=== PATIENT | female | born 1975 | race Caucasian/White ===

== ENCOUNTER 2017-06-21 03:44 | Emergency (ER) | payer MEDICAID ==
[2017-06-21] MEDS ORDERED: LIDOCAINE 1% INJ-PF (10 MG/ML) 30 ML SDV INJ ONE (04:50)
--- NOTE | 2017-06-21 04:56 | ER Document Report ---
HPI - HPI Pain Level: 5 Notes: Patient with a history of recurrent hidradenitis presents the ED complaining of multiple abscesses with the largest one in the right groin 1 day. Patient states that she has 2 in her axilla that are smaller and the potty trained that do not cause her much discomfort, a couple small areas under her breasts bilaterally, the larger abscess in her right groin that is actively draining. Patient states that she usually needs an incision and drainage performed and placed on antibiotics. Patient states that she has been seen by multiple different providers and pack changer without any definitive treatment. Patient denies any history of MRSA. She is still eating and drinking without any difficulties. Tylenol has not helped for her pain. She denies any smoking or drug use. Denies any headache, fever, chest pain, palpitations, syncope, cough , shortness of breath, wheeze, dyspnea, abdominal pain, nausea/vomiting/diarrhea , dysuria, hematuria. - ROS Notes: REVIEW OF SYSTEMS: CONSTITUTIONAL : Denies fever, chills, or sweats. Denies recent illness. EENT: Denies eye, ear, throat, or mouth pain or symptoms. Denies nasal or sinus congestion or discharge. Denies throat, tongue, or mouth swelling or difficulty swallowing. CARDIOVASCULAR: Denies chest pain. Denies palpitations or racing or irregular heart beat. Denies ankle edema. RESPIRATORY: Denies cough, cold, or chest congestion. Denies shortness of breath, difficulty breathing, or wheezing. GASTROINTESTINAL: Denies abdominal pain or distention. Denies nausea, vomiting , or diarrhea. Denies blood in vomitus, stools, or per rectum. Denies black, tarry stools. Denies constipation. GENITOURINARY: Denies difficulty urinating, painful urination, burning, frequency, blood in urine, or discharge. MUSCULOSKELETAL: Denies back or neck pain or stiffness. Denies joint pain or swelling. SKIN: see hpi NEUROLOGICAL: Denies confusion or altered mental status. Denies passing out or loss of consciousness. Denies dizziness or lightheadedness. Denies headache. Denies weakness or paralysis or loss of use of either side. Denies problems with gait or speech. Denies sensory loss, numbness, or tingling. ALL OTHER SYSTEMS REVIEWED AND NEGATIVE. Dictation was performed using [employer] recognition software - DERM Skin Color: Normal Past Medical History - Social History Smoking Status: Never Smoker Family History: Reviewed & Not Pertinent Patient has suicidal ideation: No Patient has homicidal ideation: No Renal/ Medical History: Denies: Hx Peritoneal Dialysis Vertical Provider Document - CONSTITUTIONAL Agree With Documented VS: Yes Notes: PHYSICAL EXAMINATION: GENERAL: Well-appearing, well-nourished and in no acute distress. NECK: Normal range of motion, supple without lymphadenopathy. Breasts: + hydradenitis x3 (0.5cm) to the inferior breasts b/l with mild erythema. No abscess, induration, or discharge. + mild tenderness. LUNGS: Breath sounds clear to auscultation bilaterally and equal. No wheezes rales or rhonchi. HEART: Regular rate and rhythm without murmurs, rubs, gallops. Musculoskeletal: FROM to passive/active. Strength 5+/5. Extremities: No cyanosis, clubbing, or edema b/l. Peripheral pulses 2+. Capillary refill less than 3 seconds. NEUROLOGICAL: Cranial nerves grossly intact. Normal speech, normal gait. Normal sensory, motor exams PSYCH: Normal mood, normal affect. SKIN: Lt axilla: 1cm erythemic areas-hydradenitis. Minimal induration. No discharge or streaks. Rt groin: 2cm erythemic abscess with induration noted and purulent discharge. + tenderness. Hydradenitis noted. No streaking or inguinal lymphadenopathy. - INFECTION CONTROL TRAVEL OUTSIDE OF THE [place] IN LAST 30 DAYS: No - RESPIRATORY O2 Sat by Pulse Oximetry: 97 Course - Re-evaluation Re-evalutation: 06/21/17 05:40 Patient is an afebrile, well-hydrated, 41-year-old female who presents the ED with an acute exacerbation of hidradenitis and abscess to her right groin. Vitals are stable. PE otherwise unremarkable. Incision and drainage was performed successfully without complications to the right groin and packing was placed. Wound dressing placed. Wound instructions reviewed. Wound culture obtained. I will send her home with Keflex and Bactrim to take as directed. Conservative measures otherwise for symptoms. Recheck/establish with PCM this week. Consider consult with dermatology. Return to the ED with any worsening/ concerning symptoms otherwise as reviewed discharge. Patient is in agreement. - Vital Signs Vital signs: Temp Pulse Resp BP Pulse Ox 97.6 F 90 18 129/76 H 97 06/21/17 03:51 06/21/17 03:51 06/21/17 03:51 06/21/17 03:51 06/21/17 03:51 Procedures - Incision and Drainage Right Groin Time completed: 05:10 Type: Simple Anesthetic type: 1% Lidocaine mL's of anesthetic: 6 Blade size: 11 I&D procedure: Shurclens applied, Iodoform packing placed, Sterile dressing applied Incision Method: Incision made by scalpel Amount/type of drainage: 3cc purulent discharge, 3cc blood Notes: 06/21/17 05:20 Incision and drainage procedure, risks, benefits reviewed with the patient. Verbal and written consent obtained. Sterile technique utilized. The area was extensively cleansed utilizing shurclens and saline. A 21-gauge needle was utilized to anesthetize the area using 6 mL's of 1% lidocaine without epinephrine. Once adequate anesthesia was provided, a #11 scalpel was utilized to make a 2 cm incision at the site of the abscess. moderate amount of purulent material was expressed. Wound culture obtained. Hemostats were then utilized to break up any remaining muscular pockets within the abscess. The wound was then lightly packed using 1/4" iodoform. Wound dressing and triple antibiotic placed. Minimal blood loss (approximately 2-3 cc's). Patient tolerated procedure well. No complications. Discharge - Discharge Clinical Impression: Abscess, Hydradenitis Condition: Stable Disposition: HOME, SELF-CARE Instructions: Post Incision and Drainage, Abscess ([facility]), Trimethoprim-Sulfa ( [facility]), Cephalexin ([facility]) Additional Instructions: Do not shower or bathe for 24 hours. After 24 hours she may shower but no submersion of the wound under water. Keep the original dressing on the wound for 24 hours unless the drainage stops through. Change the dressing daily thereafter and use a small amount of triple antibiotic ointment over the open wound. Return to the ED and/or your PCM in 2-3 days for recheck and continue direction for wound packing. Monitor for any signs of worsening pain or redness , streaks, and/or fever. Return to the ED if noticing any of the above symptoms or as needed. Take medications as directed. Return to the ED with any worsening symptoms and/or development of fever, headache, chest pain, palpitations, syncope, shortness of breath, trouble breathing, abdominal pain, n/v/d, blood in stool/urine, loss of control of bowel /bladder, or other worsening symptoms that are concerning to you. Prescriptions: Cephalexin Monohydrate [Keflex 500 mg Capsule] 500 mg PO BID #20 capsule Sulfamethoxazole/Trimethoprim [Septra-Ds 800-160 mg Tablet] 1 tab PO BID #20 tablet Forms: Elevated Blood Pressure Referrals: DERMATOLOGY [Provider Group] - Follow up as needed [facility] [Provider Group] - Follow up as needed [facility] [Provider Group] - Follow up as needed [facility] [Provider Group] - Follow up as needed
[2017-06-21 06:26] VITALS: BP 121/81
[2017-06-21] MEDS ORDERED: HYDROCODONE/ACETAMINOPHEN 5-325 MG 6 TAB/DSPK PO SCH (10:00)
== END 2017-06-21 06:25 | disposition home or self-care (01) ==
LOC: ER 03:44
PROC: 0H97XZZ Drainage of Abdomen Skin, External Approach (ICD-10-PCS; principal; 2017-06-21)
DX: L02.214 Cutaneous abscess of groin (principal); L73.2 Hidradenitis suppurativa
CPT/HCPCS: 99283; 87070; 87205; 87075; 87077; 87186; 10060; A6266; J3490

== ENCOUNTER 2017-08-25 23:23 | Emergency (ER) | payer MEDICAID, MEDICARE ==
[2017-08-26 00:01] VITALS: BP 119/78
[2017-08-26] MEDS ORDERED: HYDROMORPHONE HCL INJ/PF 2 MG/ML AMPULE ONE (00:42)
[2017-08-26] MEDS ORDERED: HYDROMORPHONE HCL INJ/PF 2 MG/ML AMPULE IM ONE (00:48)
[2017-08-26] MEDS ORDERED: SULFAMETHOXAZOLE/TRIMETHOPRIM 800-160 MG TABLET PO ONE (00:50)
--- NOTE | 2017-08-26 00:51 | ER Document Report ---
ED General - General Chief Complaint: Abscess Stated Complaint: BACK PAIN,ABSCESS Time Seen by Provider: 08/26/17 00:14 Notes: Patient is a 41-year-old female with a history of recurrent abscesses who presents with concerns of an abscess in her right lower abdomen in the suprapubic region. Patient states that this area developed over the past 3-4 days and has become a dull, constant, severe pain that is worsened by touching area. She has not tried anything for relief of the pain. She states this feels very similar to when she has had MRSA abscesses in the past. She has not seen a primary care doctor regarding today's concerns. She denies any fever or constitutional symptoms. Patient also complains of a "lump" below her right lower rib that she notices when she bends or moves. She notes that this is not the main reason for her presentation but did wish to discuss while she was here. TRAVEL OUTSIDE OF THE [place] IN LAST 30 DAYS: No - Related Data Allergies/Adverse Reactions: No Known Allergies Allergy (Verified 06/21/17 05:40) Past Medical History - General Information source: Patient - Social History Smoking Status: Never Smoker Frequency of alcohol use: None Drug Abuse: None Lives with: Family Family History: Reviewed & Not Pertinent Patient has suicidal ideation: No Patient has homicidal ideation: No Renal/ Medical History: Denies: Hx Peritoneal Dialysis Past Surgical History: Reports: Hx Tonsillectomy - Immunizations Hx Diphtheria, Pertussis, Tetanus Vaccination: - unknown Review of Systems - Review of Systems Notes: Constitutional: Negative for fever. HENT: Negative for sore throat. Eyes: Negative for visual changes. Cardiovascular: Negative for chest pain. Respiratory: Negative for shortness of breath. Gastrointestinal: Negative for abdominal pain, vomiting or diarrhea. Genitourinary: Negative for dysuria. Musculoskeletal: Negative for back pain. Skin: Positive for an abscess of the right lower abdomen Neurological: Negative for headaches, weakness or numbness. 10 point ROS negative except as marked above and in HPI. Physical Exam - Vital signs Vitals: Temp Pulse Resp BP Pulse Ox 98.4 F 89 16 119/78 96 08/25/17 23:59 08/25/17 23:59 08/25/17 23:59 08/25/17 23:59 08/25/17 23:59 Interpretation: Normal Notes: PHYSICAL EXAMINATION: GENERAL: Well-appearing, well-nourished and in no acute distress. HEAD: Atraumatic, normocephalic. EYES: Pupils equal round and reactive to light, extraocular movements intact, sclera anicteric, conjunctiva are normal. ENT: nares patent, oropharynx clear without exudates. Moist mucous membranes. NECK: Normal range of motion, supple without lymphadenopathy LUNGS: Breath sounds clear to auscultation bilaterally and equal. No wheezes rales or rhonchi. HEART: Regular rate and rhythm without murmurs ABDOMEN: Soft, nontender, normoactive bowel sounds. No guarding, no rebound. No masses appreciated. EXTREMITIES: Normal range of motion, no pitting or edema. No cyanosis. NEUROLOGICAL: No focal neurological deficits. Moves all extremities spontaneously and on command. PSYCH: Normal mood, normal affect. SKIN: Warm, Dry, normal turgor, there is a 2 x 2 centimeter abscess in the right lower abdomen and suprapubic region Course - Re-evaluation Re-evalutation: 08/26/17 00:49 Patient presents with 2 distinct complaints 1. Patient is complaining of a small lump underneath her lower right ribs that she has noted for the past several months. On palpation this appears to be a lipoma and I have encouraged her to follow-up with her primary care physician for any additional concerns. No indication for imaging or labs regarding this complaint 2. Right groin abscess: Patient does have a 2 x 2 centimeter abscess on the right side of the suprapubic region. No starting cellulitis. This will be incised and drained and patient will be started on trimethoprim sulfamethoxazole. At this time will discharge with return precautions and follow-up recommendations. Verbal discharge instructions given a the bedside and opportunity for questions given. Medication warnings reviewed. Patient is in agreement with this plan and has verbalized understanding of return precautions and the need for primary care follow-up in the next 24-72 hours. - Vital Signs Vital signs: Temp Pulse Resp BP Pulse Ox 98.4 F 89 16 119/78 96 08/25/17 23:59 08/25/17 23:59 08/25/17 23:59 08/25/17 23:59 08/25/17 23:59 Procedures - Incision and Drainage Left Abdomen Type: Simple Anesthetic type: 1% Lidocaine Blade size: 11 I&D procedure: Betadine prep applied Incision Method: Incision made by scalpel Amount/type of drainage: 5 cc of purulent drainage Discharge - Discharge Clinical Impression: Abscess Condition: Good Disposition: HOME, SELF-CARE Additional Instructions: You were seen for an abscess that required drainage. Please clean this area with soap and water twice daily and apply a topical antibiotic. Dress the area after each cleaning. Please return if you develop fever, vomiting, the pain at the site worsens, you notice spreading redness from the area, or you have any other symptoms that are concerning to you. Prescriptions: Sulfamethoxazole/Trimethoprim [Bactrim Ds Tablet] 2 tab PO BID #20 tablet Referrals: BOY PARRISH MD [ACTIVE STAFF] - Follow up as needed
== END 2017-08-26 02:29 | disposition home or self-care (01) ==
LOC: ER 23:23
PROC: 0H97XZZ Drainage of Abdomen Skin, External Approach (ICD-10-PCS; principal; 2017-08-25)
DX: L02.211 Cutaneous abscess of abdominal wall (principal); R22.2 Localized swelling, mass and lump, trunk; R10.30 Lower abdominal pain, unspecified
CPT/HCPCS: 99283; 96372; 10060; J1170

== ENCOUNTER 2017-11-06 17:04 | Emergency (ER) | payer MEDICARE ==
[2017-11-06 18:10] VITALS: BP 124/85
[2017-11-06] MEDS ORDERED: SULFAMETHOXAZOLE/TRIMETHOPRIM 800-160 MG TABLET PO ONE (19:20)
[2017-11-06] MEDS ORDERED: HYDROCODONE/ACETAMINOPHEN 5-325 MG TABLET PO ONE (19:20)
--- NOTE | 2017-11-06 19:21 | ER Document Report ---
ED Skin Rash/Insect Bite/Abscs - General Chief Complaint: Abscess Stated Complaint: POSSIBLE ABSCESS Time Seen by Provider: 11/06/17 18:55 Mode of Arrival: Ambulatory Information source: Patient Notes: Patient is a 41-year-old female who presents to the ER today for 2 days of an abscess to her lower abdomen. Patient has had abscesses before incised and drained but states that they were always on her legs or groin, never on her abdomen. She denies any fevers or chills at home, drainage from the area. She denies history of MRSA. TRAVEL OUTSIDE OF THE [place] IN LAST 30 DAYS: No - Related Data Allergies/Adverse Reactions: No Known Allergies Allergy (Verified 06/21/17 05:40) Past Medical History - General Information source: Patient - Social History Smoking Status: Never Smoker Family History: Reviewed & Not Pertinent Renal/ Medical History: Denies: Hx Peritoneal Dialysis Past Surgical History: Reports: Hx Tonsillectomy - Immunizations Hx Diphtheria, Pertussis, Tetanus Vaccination: - unknown Review of Systems - Review of Systems Constitutional: No symptoms reported EENT: No symptoms reported Cardiovascular: No symptoms reported Respiratory: No symptoms reported Gastrointestinal: No symptoms reported Genitourinary: No symptoms reported Female Genitourinary: No symptoms reported Musculoskeletal: No symptoms reported Skin: See HPI Hematologic/Lymphatic: No symptoms reported Neurological/Psychological: No symptoms reported Physical Exam - Vital signs Vitals: Temp Pulse Resp BP Pulse Ox 97.8 F 78 18 124/85 99 11/06/17 18:09 11/06/17 18:09 11/06/17 18:09 11/06/17 18:09 11/06/17 18:09 - Notes Notes: PHYSICAL EXAMINATION: GENERAL: Well-appearing and in no acute distress. HEAD: Atraumatic, normocephalic. EYES: Pupils equal round and reactive to light, extraocular movements intact, sclera anicteric, conjunctiva are normal. ENT: ear canals without erythema or foreign body, TMs pearly do with good bony landmarks, nares patent, oropharynx clear without exudates. Moist mucous membranes. NECK: Normal range of motion, supple without lymphadenopathy LUNGS: CTAB and equal. No wheezes rales or rhonchi. HEART: Regular rate and rhythm without murmurs ABDOMEN: Soft, no tenderness. No guarding, no rebound BACK: no vertebral tenderness, normal ROM GI/: no CVA tenderness EXTREMITIES: Normal range of motion, no pitting edema. No cyanosis. NEUROLOGICAL: Cranial nerves grossly intact. Normal sensory/motor exams. PSYCH: Normal mood, normal affect. SKIN: Warm, Dry, normal turgor, 3 cm x 6 cm erythema to the lower abdominal wall , tender to palpation, small amount of fluctuance in the center, no induration Course - Re-evaluation Re-evalutation: 11/06/17 20:55 Patient's white blood cell count is 18.1. Abscesses I&D is successfully. Moderate amount of purulent fluid was relieved. Patient placed on Bactrim. 11/07/17 11:24 - Vital Signs Vital signs: Temp Pulse Resp BP Pulse Ox 97.8 F 78 18 124/85 99 11/06/17 18:09 11/06/17 18:09 11/06/17 18:09 11/06/17 18:09 11/06/17 18:09 - Laboratory Result Diagrams: 11/06/17 20:05 Laboratory results interpreted by me: 11/06/17 20:05 WBC 18.1 H RDW 14.4 H Plt Count 462 H Absolute Neutrophils 13.4 H Procedures - Incision and Drainage Lower Abdomen Time completed: 21:00 Type: Simple Anesthetic type: 1% Lidocaine Blade size: 11 - 5 I&D procedure: Betadine prep applied Incision Method: Incision made by scalpel Amount/type of drainage: moderate pus and some blood Discharge - Discharge Clinical Impression: Abscess of abdominal wall Condition: Stable Disposition: HOME, SELF-CARE Instructions: Abscess ([facility]), Post Incision and Drainage, Trimethoprim-Sulfa ( [facility]) Additional Instructions: Return immediately for any new or worsening symptoms. Follow up with primary care provider, call tomorrow to make followup appointment. Prescriptions: Oxycodone HCl/Acetaminophen [Percocet 5-325 mg Tablet] 1 tab PO Q4 PRN #15 tab PRN Reason: Sulfamethoxazole/Trimethoprim [Bactrim Ds Tablet] 1 each PO BID #20 tablet Forms: Return to Work
[2017-11-06 20:31] LABS: ABSOLUTE BASOPHILS # (AUTO) 0.1 10^3/uL (0.0-0.2); ABSOLUTE EOSINOPHILS # (AUTO) 0.2 10^3/uL (0.0-0.6); ABSOLUTE LYMPHOCYTES (AUTO) 3.4 10^3/uL (0.5-4.7); ABSOLUTE NEUT (AUTO) 13.4 10^3/uL (1.7-8.2); BASOPHILS % (AUTO) 0.5 % (0-2); HEMATOCRIT 39.7 % (36.0-47.0); HEMOGLOBIN 12.9 g/dL (12.0-15.5); MEAN CORPUSCULAR HEMOGLOBIN 27.8 pg (27.0-33.4); MEAN CORPUSCULAR HGB CONC 32.4 g/dL (32.0-36.0); MEAN CORPUSCULAR VOLUME 86 fl (80-97); MONOCYTES % (AUTO) 5.4 % (3-13); PLATELET COUNT 462 10^3/uL (150-450); RED BLOOD COUNT 4.62 10^6/uL (3.72-5.28); RED CELL DISTRIBUTION WIDTH 14.4 % (11.5-14.0); SEGMENTED NEUTROPHILS % (AUTO) 74.1 % (42-78); TOTAL CELLS COUNTED % (AUTO) 100 %; WHITE BLOOD COUNT 18.1 10^3/uL (4.0-10.5)
[2017-11-06] MEDS ORDERED: LIDOCAINE 1% INJ-PF (10 MG/ML) 30 ML SDV INJ ONE (20:57)
[2017-11-06] MEDS ORDERED: HYDROCODONE/ACETAMINOPHEN 5-325 MG (6 TAB/ER DISP) PO PRN (21:20)
== END 2017-11-06 21:32 | disposition home or self-care (01) ==
LOC: ER 17:04
PROC: 0H97XZZ Drainage of Abdomen Skin, External Approach (ICD-10-PCS; principal; 2017-11-06)
DX: L02.211 Cutaneous abscess of abdominal wall (principal)
CPT/HCPCS: 99283; 36415; 85025; 10060; A6266; J3490; A9270 ×3

== ENCOUNTER 2017-11-22 20:19 | Emergency (ER) | payer MEDICARE ==
--- NOTE | 2017-11-22 23:00 | ER Document Report ---
HPI - HPI Patient complains to provider of: Skin abnormality Pain Level: 5 Context: Patient is a 41-year-old female comes emergency department for chief complaint of an area on her chest above her right breast where there is a scattered redness which is itchy and intermittently hurts. She denies that it has spread but it has become more symptomatic. She denies history of the same. She also states she wants her right armpit checked, she has had many abscesses in the past. She just completed treatment for an abdominal abscess with Bactrim and the abscess has resolved. - CONSTITUTIONAL Constitutional: DENIES: Fever, Chills - EENT EENT: DENIES: Sore Throat, Ear Pain, Eye problems - CARDIOVASCULAR Cardiovascular: DENIES: Chest pain - RESPIRATORY Respiratory: DENIES: Trouble Breathing, Coughing - REPRODUCTIVE LMP: IUD Past Medical History - General Information source: Patient - Social History Smoking Status: Never Smoker Frequency of alcohol use: None Drug Abuse: None Lives with: Family Family History: Reviewed & Not Pertinent Patient has suicidal ideation: No Patient has homicidal ideation: No Renal/ Medical History: Denies: Hx Peritoneal Dialysis Past Surgical History: Reports: Hx Tonsillectomy - Immunizations Hx Diphtheria, Pertussis, Tetanus Vaccination: Yes - unknown Vertical Provider Document - CONSTITUTIONAL General Appearance: WD/WN, No Apparent Distress - INFECTION CONTROL TRAVEL OUTSIDE OF THE [place] IN LAST 30 DAYS: No - HEENT HEENT: Atraumatic, Normocephalic - NECK Neck: Normal Inspection - RESPIRATORY Respiratory: Breath Sounds Normal, No Respiratory Distress O2 Sat by Pulse Oximetry: 98 - CARDIOVASCULAR Cardiovascular: Regular Rate, Regular Rhythm - GI/ABDOMEN Gastrointestinal: Abdomen Soft, Abdomen Non-Tender - BACK Back: Normal Inspection - MUSCULOSKELETAL/EXTREMETIES Musculoskeletal/Extremeties: MAEW, FROM, Non-Tender - DERM Integumentary: Rash - Over the sternum area there is a patchy bright erythema, tiny papules visible but appears mildly excoriated, no vesicles, no pustules, no induration, no fluctuance. Separately in the right axillary area there are old areas of scarring which appear to have been drained abscesses, there is an area of mild erythema with no induration, fluctuance, or significant tenderness. No lymphadenopathy. Normal skin exam otherwise. Course - Re-evaluation Re-evalutation: Examination suggestive of fungal rash versus dermatitis versus vasculitis. No evidence of shingles, no evidence of abscess, no induration or fluctuance, no evidence of necrotizing fasciitis. There is no abscess noted in the axilla at this time either. Discussed with patient. Patient will be trialed on a antifungal, given recommendations otherwise, discussed return precautions, patient states understanding and agreement. - Vital Signs Vital signs: Temp Pulse Resp BP Pulse Ox 97.7 F 95 120/81 98 11/22/17 20:59 11/22/17 20:59 11/22/17 20:59 11/22/17 20:59 Discharge - Discharge Clinical Impression: Skin rash Condition: Stable Disposition: HOME, SELF-CARE Additional Instructions: The exact cause of the rash is uncertain at this time, could be fungal but also could be other possibilities (vasculitis, dermatitis, etc.). I recommend placing the prescribed antifungal on it. If after a week no changes noticed you could alternatively try a topical steroid such as [id number] hydrocortisone. Follow-up with primary care. Return for any concerning symptoms including spreading rash, swelling, discolored discharge, fever, or any other concerning symptoms. Prescriptions: Clotrimazole 15 gm TP ASDIR PRN #1 cream.gm. PRN Reason:
[2017-11-23 00:19] VITALS: BP 101/49
== END 2017-11-22 23:50 | disposition home or self-care (01) ==
LOC: ER 20:19
DX: R21 Rash and other nonspecific skin eruption (principal); L29.9 Pruritus, unspecified
CPT/HCPCS: 99283

== ENCOUNTER 2019-03-07 09:48 | Emergency (ER) | payer MEDICARE, MEDICAID ==
--- NOTE | 2019-03-07 10:27 | ER Document Report ---
ED Medical Screen (RME) - General Chief Complaint: Psych Problem Stated Complaint: PSYCH EVAL Time Seen by Provider: 03/07/19 10:18 Mode of Arrival: Ambulatory Information source: Patient TRAVEL OUTSIDE OF THE [place] IN LAST 30 DAYS: No - HPI Patient complains to provider of: NEED'S "CHECKED OUT" Notes: 03/07/19 10:26 Patient here stating that she has a history of some abscesses under her arms groin and breast area gets inflamed up every once in a while, she is slightly concerned that she may have a parasite causing this. She also states that she feels like she needs some help in getting some resources to help with her psychosis. She has a history of bipolar, kyra, schizophrenia, dual personality disorder he would like some help in dealing with this. Currently denies any homicidal or suicidal she denies any visual or auditory hallucinations at this time. Exam No distress, nontoxic-appearing. Lungs clear and equal throughout. Heart sounds normal. Slightly disorganized thinking. Tearful at times. No homicidal or suicidal ideation. Plan CBC, CMP, TSH, drug and alcohol screening, urine, urine , psychiatric consult. An initial examination was made on the patient as part of the triage process, and it was determined a more comprehensive evaluation was necessary. Initial labs were ordered and patient was transferred to another provider in the ED who assumed care and finished evaluation and plan. - Related Data Allergies/Adverse Reactions: No Known Allergies Allergy (Verified 03/07/19 10:22) Past Medical History - Social History Chew tobacco use (# tins/day): No Frequency of alcohol use: None Drug Abuse: None Renal/ Medical History: Denies: Hx Peritoneal Dialysis Psychiatric Medical History: Reports: Hx Bipolar Disorder, Hx Schizophrenia Past Surgical History: Reports: Hx Tonsillectomy - Immunizations Hx Diphtheria, Pertussis, Tetanus Vaccination: Yes - unknown Physical Exam - Vital signs Vitals: Temp Pulse Resp BP Pulse Ox 98.1 F 98 15 143/86 H 99 03/07/19 10:03/07/19 10:03/07/19 10:03/07/19 10:03/07/19 10:03 Course - Vital Signs Vital signs: Temp Pulse Resp BP Pulse Ox 98.1 F 98 15 143/86 H 99 03/07/19 10:03 03/07/19 10:03 03/07/19 10:03 03/07/19 10:03 03/07/19 10:03
[2019-03-07 10:53] LABS: ABSOLUTE BASOPHILS # (AUTO) 0.2 10^3/uL (0.0-0.2); ABSOLUTE EOSINOPHILS # (AUTO) 0.1 10^3/uL (0.0-0.6); ABSOLUTE LYMPHOCYTES (AUTO) 2.6 10^3/uL (0.5-4.7); ABSOLUTE MONOCYTES (AUTO) 0.7 10^3/uL (0.1-1.4); ABSOLUTE NEUT (AUTO) 11.1 10^3/uL (1.7-8.2); BASOPHILS % (AUTO) 1.2 % (0-2); EOSINOPHILS % (AUTO) 0.4 % (0-6); HEMATOCRIT 42.4 % (36.0-47.0); HEMOGLOBIN 14.2 g/dL (12.0-15.5); LYMPHOCYTES % (AUTO) 17.8 % (13-45); MEAN CORPUSCULAR HEMOGLOBIN 28.9 pg (27.0-33.4); MEAN CORPUSCULAR HGB CONC 33.5 g/dL (32.0-36.0); MEAN CORPUSCULAR VOLUME 86 fl (80-97); MONOCYTES % (AUTO) 4.7 % (3-13); PLATELET COUNT 432 10^3/uL (150-450); RED BLOOD COUNT 4.92 10^6/uL (3.72-5.28); RED CELL DISTRIBUTION WIDTH 14.4 % (11.5-14.0); SEGMENTED NEUTROPHILS % (AUTO) 75.9 % (42-78); TOTAL CELLS COUNTED % (AUTO) 100 %; WHITE BLOOD COUNT 14.6 10^3/uL (4.0-10.5)
[2019-03-07 11:14] LABS: ALANINE AMINOTRANSFERASE 23 U/L (9-52); ALBUMIN 4.2 g/dL (3.5-5.0); ALCOHOL < 10 mg/dL (NONE DETECTED); ALKALINE PHOSPHATASE 83 U/L (38-126); ANION GAP 12 (5-19); ASPARTATE AMINO TRANSFERASE 16 U/L (14-36); BILIRUBIN,DIRECT 0.3 mg/dL (0.0-0.4); BILIRUBIN,TOTAL 0.7 mg/dL (0.2-1.3); BLOOD UREA NITROGEN 8 mg/dL (7-20); CALCIUM 9.7 mg/dL (8.4-10.2); CARBON DIOXIDE 22 mmol/L (22-30); CHLORIDE 108 mmol/L (98-107); GLUCOSE 97 mg/dL (75-110); POTASSIUM 4.2 mmol/L (3.6-5.0); SODIUM 142.3 mmol/L (137-145); TOTAL PROTEIN 7.4 g/dL (6.3-8.2)
--- NOTE | 2019-03-07 12:01 | ER Document Report ---
ED General <JERMAN AMADOR - Last Filed: 03/07/19 17:05> - General Mode of Arrival: Ambulatory Information source: Patient TRAVEL OUTSIDE OF THE [place] IN LAST 30 DAYS: No - HPI Onset: Other - Last several months Onset/Duration: Gradual Quality of pain: No pain Severity: Mild Pain Level: Denies Associated symptoms: denies: Chest pain, Fever, Shortness of breath Exacerbated by: Denies Relieved by: Denies Similar symptoms previously: Yes Recently seen / treated by doctor: No <BRIT NEWTON - Last Filed: 03/07/19 17:56> - General Chief Complaint: Psych Problem Stated Complaint: PSYCH EVAL Time Seen by Provider: 03/07/19 10:18 Primary Care Provider: [facility] [Outside] - Follow up as needed [facility] [Outside] - 04/20/19 12:00 pm Notes: This is a 43-year-old female with a history of bipolar affective disorder, schizophrenia, depression, hidradenitis suppurativa who presents to the emergency room with anxiousness. She is been off medicines for the past 4 years. She has no suicidal ideations. (BRIT NEWTON) - Related Data Allergies/Adverse Reactions: No Known Allergies Allergy (Verified 03/07/19 10:22) Past Medical History - General Information source: Patient - Social History Smoking Status: Never Smoker Cigarette use (# per day): No Chew tobacco use (# tins/day): No Frequency of alcohol use: None Drug Abuse: None Lives with: Family Family History: Reviewed & Not Pertinent Patient has suicidal ideation: No Patient has homicidal ideation: No - Past Medical History Cardiac Medical History: Reports: None Pulmonary Medical History: Reports: None EENT Medical History: Reports: None Neurological Medical History: Reports: None Endocrine Medical History: Reports: None Renal/ Medical History: Reports: None. Denies: Hx Peritoneal Dialysis Malignancy Medical History: Reports: None GI Medical History: Reports: None Musculoskeletal Medical History: Reports None Skin Medical History: Reports Other - Hidradenitis superitiva Psychiatric Medical History: Reports: Hx Bipolar Disorder, Hx Schizophrenia Past Surgical History: Reports: Hx Tonsillectomy - Immunizations Hx Diphtheria, Pertussis, Tetanus Vaccination: Yes - unknown <BRIT NEWTON - Last Filed: 03/07/19 17:56> Review of Systems - Review of Systems Constitutional: denies: Chills, Fever EENT: No symptoms reported Cardiovascular: denies: Chest pain, Palpitations, Heart racing Respiratory: denies: Cough, Short of breath Gastrointestinal: No symptoms reported Genitourinary: No symptoms reported Female Genitourinary: No symptoms reported Musculoskeletal: No symptoms reported Skin: See HPI Hematologic/Lymphatic: No symptoms reported Neurological/Psychological: See HPI <BRIT NEWTON - Last Filed: 03/07/19 17:56> Physical Exam <BRIT NEWTON - Last Filed: 03/07/19 17:56> - Vital signs Vitals: Temp Pulse Resp BP Pulse Ox 98.1 F 98 15 143/86 H 99 03/07/19 10:03 03/07/19 10:03 03/07/19 10:03 03/07/19 10:03 03/07/19 10:03 Notes: Physical exam: GENERAL: Is alert and oriented x3, no acute distress. HEAD: Atraumatic, normocephalic. EYES: Pupils equal round and reactive to light, extraocular movements intact, sclera anicteric, conjunctiva are normal. ENT: TMs normal, nares patent, oropharynx clear without exudates. Moist mucous membranes. NECK: Normal range of motion, supple without obvious mass or JVD. LUNGS: Breath sounds clear to auscultation bilaterally and equal. No wheezes rales or rhonchi. HEART: Regular rate and rhythm without murmurs, rubs or gallops. ABDOMEN: Soft, normoactive bowel sounds. No tenderness to palpation. No guarding, no rebound. No masses appreciated. EXTREMITIES: Normal range of motion, no pitting or edema. No clubbing or cyanosis. NEUROLOGICAL: Cranial nerves II through XII grossly intact. Normal speech, moving all extremities. PSYCH: She states she feels anxious. SKIN: Warm, Dry, normal turgor, no rashes or lesions noted. (BRIT NEWTON) Course - Laboratory Result Diagrams: 03/07/19 10:34 03/07/19 10:34 <JERMAN AMADOR - Last Filed: 03/07/19 17:05> - Laboratory Result Diagrams: 03/07/19 10:34 03/07/19 10:34 <BRIT NEWTON - Last Filed: 03/07/19 17:56> - Re-evaluation Re-evalutation: 03/07/19 17:55 Patient was evaluated by psychiatry and felt stable for outpatient management. She denies any homicidal or suicidal ID she is at this time. Patient's vital signs have been stable and she is afebrile and in no acute distress. Psychiatry did recommend some Zyprexa until follow-up in the outpatient setting and I have written a prescription for Zyprexa. (BRIT NEWTON) - Vital Signs Vital signs: Temp Pulse Resp BP Pulse Ox 98.1 F 70 18 120/56 L 97 03/07/19 13:39 03/07/19 13:39 03/07/19 13:39 03/07/19 13:39 03/07/19 13:39 - Laboratory Laboratory results interpreted by me: 03/07/19 03/07/19 03/07/19 10:34 10:34 14:00 WBC 14.6 H RDW 14.4 H Absolute Neutrophils 11.1 H Chloride 108 H Creatinine 0.50 L Urine Ketones 80 H Urine Blood LARGE H Urine Nitrite POSITIVE H Urine Urobilinogen 2.0 H Discharge <JERMAN AMADOR - Last Filed: 03/07/19 17:05> <BRIT NEWTON - Last Filed: 03/07/19 17:56> - Discharge Clinical Impression: Bipolar 1 disorder, mixed Condition: Stable Disposition: HOME, SELF-CARE Additional Instructions: You have been evaluated by both medical and behavioral health professionals while in the emergency department. You have been cleared from both acute medical and psychiatric services. You described times when you are low and shut down, times when you are happy/having kyra when you bounce from one idea to another and fits of anger. These are common and characteristic mood changes in Bipolar Disorder which is a chemical imbalance in the brain that medications help to maintain. Bipolar Disorder Bipolar disorder is also called manic-depressive disorder. Depression alternates with brain hyperactivity called kyra. Each phase lasts from several days to a few weeks. We don't know exactly what causes bipolar disorder, but it's treatable. During the "manic phase," you may feel elated and energetic. You may have racing thoughts, rapid speech, increased activity, and grandiose ideas. During this time, you may not realize how poor your judgement is. Inappropriate spending, drug abuse, excessive alcohol use, marriage problems, and irresponsible sexual behavior are common during the manic phase. During the "depressive phase," you might feel depressed, guilty, worthless, fatigued, and unable to concentrate. You might have thoughts of suicide. Good treatments are available for bipolar disorder. [place] is a classic drug for bipolar disorder, and is still often useful. If the manic phase is very mild, an antidepressant alone can be prescribed. If the manic phase is very severe, an antipsychotic medicine (such as Haldol) may be needed. The treatment must be matched to your symptoms, so it's important to work closely with your psychiatric care provider. Contact your physician, the hospital emergency center, crisis line, or your counsellor if you are losing control or having self-destructive thoughts. Follow up care: You have a follow up outpatient therapy appointment scheduled at [facility] on 04/20/19 (a Tuesday) at 1300 but you need to be there by noon for initial paperwork. If you need to be seen sooner you can try to do a walk in at [facility] Tuesday through Tuesday from [phone]. You have been provided the outpatient mental health resource sheet which also highlighted [facility] for crisis and talk therapy. Prescriptions: Olanzapine [Zyprexa 2.5 Mg Tablet] 2.5 mg PO BID #30 tablet Referrals: [facility] [Outside] - Follow up as needed [facility] [Outside] - 04/20/19 12:00 pm
[2019-03-07 14:29] LABS: APPEARANCE,URINE CLOUDY; BILIRUBIN,URINE NEGATIVE (NEGATIVE); GLUCOSE, URINE NEGATIVE (NEGATIVE); KETONES,URINE 80 mg/dL (NEGATIVE); LEUKOCYTE ESTERASE,URINE NEGATIVE (NEGATIVE); NITRITE,URINE POSITIVE (NEGATIVE); PROTEIN,URINE NEGATIVE (NEGATIVE); URINE SPECIFIC GRAVITY 1.018
[2019-03-07 14:30] LABS: COLOR,URINE YELLOW
[2019-03-07 14:41] LABS: URINE AMPHETAMINES SCREEN NEGATIVE; URINE BARBITURATES SCREEN NEGATIVE; URINE BENZODIAZEPINES SCREEN NEGATIVE; URINE COCAINE SCREEN NEGATIVE; URINE MARIJUANA (THC) SCREEN UNCONFIRMED POSITIVE; URINE METHADONE SCREEN NEGATIVE; URINE PHENCYCLIDINE SCREEN NEGATIVE
[2019-03-07 18:14] VITALS: BP 103/63
--- NOTE | 2019-03-11 06:54 | PSYCHOLOGICAL NOTE ---
Psych Note - Psych Note Date seen by psych provider: 03/07/19 Time seen by psych provider: 14:15 - Hardboard Press Operator did chart review right when consult came in. Inroduction at 1415. Clinician chart review at 1511. Evlauation from [phone]. Psych Note: Reason for Consult: MH History, no on medications, wants linkage to local resources Contact Permissions: Boyfriend of 4 years at bedside Patient is a 43 year old female who presented to the ED late this morning as a voluntary walk in via her boyfriend for bad skin problems and mental problems. She reported "I have felt an episode coming on over the past 3 months, this morning I woke up feeling much better which was alarming because in a month I know it will be repetitious." She reported previous diagnoses of psychosis, Bipolar, Marimar, Schizophrenia and Dual Personality. She denied being on medication currently and said "I don't really want to take medication." Patient stated "I don't want my ability to sense things to be blocked, I want to be aware of my environment, I have to feel connceted." She identified she has used various techniques like breathing which has helped her many times. She reported "I have trouble keeping my mind on track, I shut down when I am low, my thoughts are bouncing around when I am manic, I have fits of anger that are like binges where I become abusive and I overeat (do not eat 3 meals a day, binge eat)." She stated she "can control the fits of anger at times and doesn't want it to be there." Patient stated she sleeps at night and naps during the day. She reported she has been on numerous medications in the past such as: Lamictal, Paxil, Buspar, Latuda, [place], Seroquel and Trazodone. She mentioned a medication "made me drool terribly" and thought it was Abilify. She stated she would try medications for 1-2 months "but the side effects." She denied SI/HI and history of attempts. She admitted to "being in and out of hospitals in [place] for MH" with the last time being 4 years ago. She stated she had follow up outpatient in [place], [place] where she did groups and individual therapy "but got kicked out, I have trouble communicating especially when I don't feel well." She reported a family history of MH on both sides but did not specify anyone except sister and did not provide diagnosis. She noted stress surrounding family and her past. She also stated she "wanted an antibiotic for her bad skin problems." She stated she has not been on antibiotics since early last year. She did have visits for cysts/abscesses in the past. Patient was alert and oriented to self, person, place, time and situation. Mood was euthymic with congruent affect. She denied SI/HI as well as previous attempts. She did not appear to be responding to internal stimuli as evidenced by fair eye contact, answering questions appropriately when addressed, carrying on dialogue conversation and being engaged in evaluation. Thought processes were linear. Conversational speech was within normal limits for rate, tone and prosody. Intellectual abilities are estimated to be average. Insight, judgment and impulse control were fair as evidenced by seeking help, being forth coming and wanting linkage to at least therapy. Boyfriend stated they just moved from [place] to [place] which may have put some stress on patient (thought she denied it being stressful). He stated she is "sometimes" on track, able to keep focus or stay on topic in their interactions. He denied any concern for SI. Diagnosis: 296.80 (F31.9) Unspecified Bipolar and Related Disorder Medication recommendations made by the psychiatric medical provider, Dr. Evan MD., includes: Add Zyprexa 2.5MG twice a day for mood stabilization/impulse control Impression/Plan: Patient is cleared from acute psychiatric services. She denied SI/HI, denied previous attempts, boyfriend denied concern for SI and no observed psychosis that interfered with ability to interact with others/express self/express wants and needs. Scheduled follow up therapy appointment at [facility] on 04/20/19 at 1300 (soonest available due to her insurance). Provided outpatient MH resource sheet which documented appointment date and time, that she could walk in M-F [id number] for medications or to try to get sooner appointment. Also highlighted the [facility] number for crisis/talk therapy/linkage to other supports/services. Consulted with Dr. Graves regarding the management and care of patient. ED Physician in agreement with recommendations.
== END 2019-03-07 18:21 | disposition home or self-care (01) ==
LOC: ER 09:48
DX: F31.9 Bipolar disorder, unspecified (principal)
CPT/HCPCS: 36415; 80053; 80307; 81001; 81025; 84443; 85025; 99284

== ENCOUNTER 2019-04-05 17:43 | Emergency (ER) | payer MEDICARE, MEDICAID ==
--- NOTE | 2019-04-05 17:59 | ER Document Report ---
ED Medical Screen (RME) - General Chief Complaint: Psych Problem Stated Complaint: PSYCH ISSUE Time Seen by Provider: 04/05/19 17:54 TRAVEL OUTSIDE OF THE [place] IN LAST 30 DAYS: No - HPI Notes: 04/05/19 17:57 Patient is a 43-year-old female with a history of chronic multiple psychiatric disorders (psychosis, Bipolar, Marimar, Schizophrenia and Dual Personality) who presents complaining of mood instability increasing over the past 2 to 3 weeks. She has not had any SI or HI. Patient states that she does continue to hear voices, but has had this chronically. She was here about a month ago for something similar and was prescribed medication which she did not fill. She states that she has been trying to maintain with diet and supplementation [id number]. Patient states that this method has not been working for her which is why she presents here today. Patient is aware that our psychology team is not here for the evening, and is willing to wait until morning for evaluation if warranted. Denies CUELLAR, fever, neck pain, URI, CP, SOB, Abd pain, dysuria, back pain, or rash. According to note on 03/07, she was to start taking zyprexa 2.5mg BID. She states that she does not want it if it is "like abilify." Both antipsychotics 2nd gen. I have treated and performed a rapid initial assessment of this patient. A comprehensive ED assessment and evaluation of the patient, analysis of test results and completion of medical decision making process will be conducted by additional ED providers. PHYSICAL EXAMINATION: GENERAL: Well-appearing, well-nourished and in no acute distress. A&Ox4. Answers questions appropriately. LUNGS: Breath sounds clear to auscultation bilaterally and equal. No wheezes rales or rhonchi. HEART: Regular rate and rhythm without murmurs, rubs, gallops. Extremities: No cyanosis, clubbing, or edema b/l. NEUROLOGICAL: Normal speech, normal gait. Cranial nerves grossly intact. PSYCH: Depressed mood, flat affect - Related Data Allergies/Adverse Reactions: codeine Allergy (Verified 04/05/19 17:55) Past Medical History Renal/ Medical History: Denies: Hx Peritoneal Dialysis Psychiatric Medical History: Reports: Hx Bipolar Disorder, Hx Schizophrenia Past Surgical History: Reports: Hx Tonsillectomy - Immunizations Hx Diphtheria, Pertussis, Tetanus Vaccination: Yes - unknown Physical Exam - Vital signs Vitals: Temp Pulse Resp BP Pulse Ox 98.3 F 95 16 145/95 H 97 04/05/19 17:51 04/05/19 17:51 04/05/19 17:51 04/05/19 17:51 04/05/19 17:51 Course - Vital Signs Vital signs: Temp Pulse Resp BP Pulse Ox 98.3 F 95 16 145/95 H 97 04/05/19 17:51 04/05/19 17:51 04/05/19 17:51 04/05/19 17:51 04/05/19 17:51
[2019-04-05 18:41] LABS: ABSOLUTE BASOPHILS # (AUTO) 0.1 10^3/uL (0.0-0.2); ABSOLUTE EOSINOPHILS # (AUTO) 0.1 10^3/uL (0.0-0.6); ABSOLUTE LYMPHOCYTES (AUTO) 2.8 10^3/uL (0.5-4.7); ABSOLUTE MONOCYTES (AUTO) 0.9 10^3/uL (0.1-1.4); ABSOLUTE NEUT (AUTO) 12.6 10^3/uL (1.7-8.2); BASOPHILS % (AUTO) 0.6 % (0-2); EOSINOPHILS % (AUTO) 0.3 % (0-6); HEMATOCRIT 42.4 % (36.0-47.0); MEAN CORPUSCULAR HEMOGLOBIN 28.7 pg (27.0-33.4); MEAN CORPUSCULAR VOLUME 87 fl (80-97); MONOCYTES % (AUTO) 5.4 % (3-13); PLATELET COUNT 454 10^3/uL (150-450); RED BLOOD COUNT 4.86 10^6/uL (3.72-5.28); RED CELL DISTRIBUTION WIDTH 14.8 % (11.5-14.0); SEGMENTED NEUTROPHILS % (AUTO) 76.7 % (42-78); TOTAL CELLS COUNTED % (AUTO) 100 %; WHITE BLOOD COUNT 16.4 10^3/uL (4.0-10.5)
--- NOTE | 2019-04-05 18:50 | ER Document Report ---
Addendum entered and electronically signed by LOLITA GROVER MD 04/06/19 12:14: Discharge - Discharge Clinical Impression: Auditory hallucination, Bipolar disorder, unspecified, Cannabis use disorder, mild, abuse Condition: Stable Disposition: HOME, SELF-CARE Instructions: Hallucinations ([facility]) Additional Instructions: You have been seen by both medical and behavioral health providers while in the emergency department. You have been cleared from both acute medical and psychiatric services. It is felt your hallucinations and mood lability are related to Bipolar Disorder history in your family and your previous diagnosis, being unmedicated and the use of cannabis can cause and/or exacerbate such symptoms whether being treated or not. You should stop using cannabis and take the prescribed medication as directed. Hallucinations (often a symptom of untreated Bipolar Disorder, can be caused by use of cannabis) You seem to be having hallucinations. Hallucinations are seeing, hearing, or feeling things that don't exist. These symptoms commonly occur with drug abuse and schizophrenia. Drugs like PCP, LSD, MDMA, peyote, and "psychedelic mushrooms" can cause frightening hallucinations. Users of methamphetamine or crack cocaine often see and feel bugs crawling on their skin. Patients with schizophrenia may hear voices that no one else can hear. The delusions of schizophrenia often involve conspiracies or relationships that are not real. When symptoms are due to drug abuse, the mental state usually improves as the drug wears off. Someone you trust should be with you until you are better, to protect you and calm your fears. Tranquilizer medicine is helpful at controlling hallucinations, anxiety, and deluded thoughts. Get a proper diet and enough sleep. Most patients do very well when they get proper medical treatment and social support. You should return at once if your symptoms get worse, if you are having suicidal thoughts or thoughts about hurting others, or if you feel that you are in danger. Bipolar Disorder Bipolar disorder is also called manic-depressive disorder. Depression alternates with brain hyperactivity called kyra. Each phase lasts from several days to a few weeks. We don't know exactly what causes bipolar disorder, but it's treatable. During the "manic phase," you may feel elated and energetic. You may have racing thoughts, rapid speech, increased activity, and grandiose ideas. During this time, you may not realize how poor your judgement is. Inappropriate spending, drug abuse, excessive alcohol use, marriage problems, and irresponsible sexual behavior are common during the manic phase. During the "depressive phase," you might feel depressed, guilty, worthless, fatigued, and unable to concentrate. You might have thoughts of suicide. Good treatments are available for bipolar disorder. Troutman is a classic drug for bipolar disorder, and is still often useful. If the manic phase is very mild, an antidepressant alone can be prescribed. If the manic phase is very severe, an antipsychotic medicine (such as Haldol) may be needed. The treatment must be matched to your symptoms, so it's important to work closely with your psychiatric care provider. Contact your physician, the hospital emergency center, crisis line, or your counsellor if you are losing control or having self-destructive thoughts. Follow-Up Plan: You have been provided a prescription for Zyprexa 2.5MG twice a day for mood stabilization/psychosis/impulse control. You should take this medication as directed. You already have a follow up appointment scheduled at [facility] on 04/20/19 at 1:00PM for therapy. You were instructed to do a walk in to [facility] prior to the scheduled appointment for medication management. you can walk in Tuesday-Tuesday 8:00AM-4:30PM (they are open until 5:00PM). You have also been provided the [facility] Mobile Crisis number for crisis, talk therapy and linkage to other supports/services. If your symptoms persist or worsen you should contact your physician immediately, utilize mobile crisis or return to the emergency department. Prescriptions: Olanzapine [Zyprexa 2.5 Mg Tablet] 2.5 mg PO BID #30 tablet Referrals: [facility] Crisis Team [Outside] - Follow up as needed [facility] [Outside] - 04/20/19 1:00 pm Addendum entered and electronically signed by JERMAN AMADOR LPC 04/06/19 11:36: Discharge - Discharge Clinical Impression: Auditory hallucination, Bipolar disorder, unspecified, Cannabis use disorder, mild, abuse Condition: Stable Disposition: HOME, SELF-CARE Instructions: Hallucinations ([facility]) Additional Instructions: You have been seen by both medical and behavioral health providers while in the emergency department. You have been cleared from both acute medical and psychiatric services. It is felt your hallucinations and mood lability are related to Bipolar Disorder history in your family and your previous diagnosis, being unmedicated and the use of cannabis can cause and/or exacerbate such symptoms whether being treated or not. You should stop using cannabis and take the prescribed medication as directed. Hallucinations (often a symptom of untreated Bipolar Disorder, can be caused by use of cannabis) You seem to be having hallucinations. Hallucinations are seeing, hearing, or feeling things that don't exist. These symptoms commonly occur with drug abuse and schizophrenia. Drugs like PCP, LSD, MDMA, peyote, and "psychedelic mushrooms" can cause frightening hallucinations. Users of methamphetamine or crack cocaine often see and feel bugs crawling on their skin. Patients with schizophrenia may hear voices that no one else can hear. The delusions of schizophrenia often involve conspiracies or relationships that are not real. When symptoms are due to drug abuse, the mental state usually improves as the drug wears off. Someone you trust should be with you until you are better, to protect you and calm your fears. Tranquilizer medicine is helpful at controlling hallucinations, anxiety, and deluded thoughts. Get a proper diet and enough sleep. Most patients do very well when they get proper medical treatment and social support. You should return at once if your symptoms get worse, if you are having suicidal thoughts or thoughts about hurting others, or if you feel that you are in danger. Bipolar Disorder Bipolar disorder is also called manic-depressive disorder. Depression alternates with brain hyperactivity called kyra. Each phase lasts from several days to a few weeks. We don't know exactly what causes bipolar disorder, but it's treatable. During the "manic phase," you may feel elated and energetic. You may have racing thoughts, rapid speech, increased activity, and grandiose ideas. During this time, you may not realize how poor your judgement is. Inappropriate spending, drug abuse, excessive alcohol use, marriage problems, and irresponsible sexual behavior are common during the manic phase. During the "depressive phase," you might feel depressed, guilty, worthless, fatigued, and unable to concentrate. You might have thoughts of suicide. Good treatments are available for bipolar disorder. Troutman is a classic drug for bipolar disorder, and is still often useful. If the manic phase is very mild, an antidepressant alone can be prescribed. If the manic phase is very severe, an antipsychotic medicine (such as Haldol) may be needed. The treatment must be matched to your symptoms, so it's important to work closely with [facility]. Contact your physician, the hospital emergency center, crisis line, or your counsellor if you are losing control or having self-destructive thoughts. Follow-Up Plan: You have been provided a prescription for Zyprexa 2.5MG twice a day for mood stabilization/psychosis/impulse control. You should take this medication as directed. You already have a follow up appointment scheduled at [facility] on 04/20/19 at 1:00PM for therapy. You were instructed to do a walk in to [facility] prior to the scheduled appointment for medication management. you can walk in Tuesday-Tuesday 8:00AM-4:30PM (they are open until 5:00PM). You have also been provided the [facility] Mobile Crisis number for crisis, talk therapy and linkage to other supports/services. If your symptoms persist or worsen you should contact your physician immediately, utilize mobile crisis or return to the emergency department. Referrals: [facility] Crisis Team [Outside] - Follow up as needed [facility] [Outside] - 04/20/19 1:00 pm Addendum entered and electronically signed by LETICIA PALMA DO 04/06/19 04:54: Course - Re-evaluation Re-evalutation: 04/06/19 04:54 Now patient states that she would like to stay and she has changed her mind so I will put the discharge on hold and have the patient seen by mental health in the morning. - Vital Signs Vital signs: Temp Pulse Resp BP Pulse Ox 98.5 F 93 16 130/74 H 100 04/06/19 02:30 04/06/19 02:30 04/06/19 02:30 04/06/19 02:30 04/06/19 02:30 - Laboratory Result Diagrams: 04/05/19 18:25 04/05/19 18:25 Laboratory results interpreted by me: 04/05/19 04/05/19 04/05/19 18:25 18:25 18:25 WBC 16.4 H RDW 14.8 H Plt Count 454 H Absolute Neutrophils 12.6 H Carbon Dioxide 21 L Urine Protein 30 H Urine Ketones 20 H Urine Blood LARGE H Urine Nitrite POSITIVE H Salicylates < 1.0 L Acetaminophen < 10 L Addendum entered and electronically signed by LETICIA PALMA DO 04/06/19 04: 52: Course - Re-evaluation Re-evalutation: 04/06/19 04:50 Patient was here on voluntary mental health complaint. Was scheduled to see mental health in the morning but patient states that she now would like to leave. She is not suicidal or homicidal. Has baseline hallucinations consistent with her prior history according to the records. At this time the patient would like to go I cannot stop her from leaving. Dr. Cleveland initially saw this patient but has finished her shift. At this time will discharge and ad vised patient to return if symptoms are getting worse. - Vital Signs Vital signs: Temp Pulse Resp BP Pulse Ox 98.5 F 93 16 130/74 H 100 04/06/19 02:30 04/06/19 02:30 04/06/19 02:30 04/06/19 02:30 04/06/19 02:30 - Laboratory Result Diagrams: 04/05/19 18:25 04/05/19 18:25 Laboratory results interpreted by me: 04/05/19 04/05/19 04/05/19 18:25 18:25 18:25 WBC 16.4 H RDW 14.8 H Plt Count 454 H Absolute Neutrophils 12.6 H Carbon Dioxide 21 L Urine Protein 30 H Urine Ketones 20 H Urine Blood LARGE H Urine Nitrite POSITIVE H Salicylates < 1.0 L Acetaminophen < 10 L Discharge - Discharge Clinical Impression: Auditory hallucination Condition: Good Disposition: HOME, SELF-CARE Instructions: Hallucinations ([facility]) Additional Instructions: Follow-up with your providers. Return for worsening symptoms or concerns. Original Note: ED General - General Chief Complaint: Psych Problem Stated Complaint: PSYCH ISSUE Time Seen by Provider: 04/05/19 17:54 Mode of Arrival: Ambulatory Information source: Patient Notes: Patient is a 43-year-old female with a history of chronic multiple psychiatric disorders (psychosis, Bipolar, Kyra, Schizophrenia and Dual Personality) who presents complaining of mood instability increasing over the past 2 to 3 weeks. She has not had any SI or HI. Patient states that she does continue to hear voices, but has had this chronically. She does not disclose what the voices are saying. Patient does live alone. She was here about a month ago for something similar and was prescribed medication which she did not fill. She states that she has been trying to maintain with diet and supplementation [id number]. Patient states that this method has not been working for her which is why she presents here today. Patient is aware that our psychology team is not here for the evening, and is willing to wait until morning for evaluation if warranted. Denies CUELLAR, fever, neck pain, URI, CP, SOB, Abd pain, dysuria, back pain, or rash. According to note on 03/07, she was to start taking zyprexa 2.5mg BID. She states that she does not want it if it is "like abilify." Both antipsychotics 2nd gen. TRAVEL OUTSIDE OF THE [place] IN LAST 30 DAYS: No - HPI Onset: Other Onset/Duration: Gradual Quality of pain: No pain Severity: None Pain Level: Denies Associated symptoms: denies: Chest pain, Nausea, Vomiting, Shortness of breath, Slow to respond Exacerbated by: Denies Relieved by: Denies Similar symptoms previously: Yes Recently seen / treated by doctor: Yes - Related Data Allergies/Adverse Reactions: codeine Allergy (Verified 04/05/19 17:55) Past Medical History - General Information source: Patient, [facility] Records - Social History Smoking Status: Current Every Day Smoker Cigarette use (# per day): Yes - 15 Smoking Education Provided: Yes - Smoking cessation counseling was provided for 4 minutes at the bedside Frequency of alcohol use: None Drug Abuse: None Lives with: Alone Family History: Reviewed & Not Pertinent Patient has suicidal ideation: No Patient has homicidal ideation: No Renal/ Medical History: Denies: Hx Peritoneal Dialysis Psychiatric Medical History: Reports: Hx Bipolar Disorder, Hx Depression, Hx Schizophrenia Past Surgical History: Reports: Hx Tonsillectomy - Immunizations Hx Diphtheria, Pertussis, Tetanus Vaccination: Yes - unknown Review of Systems - Review of Systems Notes: REVIEW OF SYSTEMS: CONSTITUTIONAL : Denies fever, chills, or sweats. Denies recent illness. Denies weight loss, recent hospitalizations. EENT: Denies visual changes, eye pain. Denies sore throat, oral lesions, difficulty swallowing. CARDIOVASCULAR: Denies chest pain. Denies palpitations. Denies lower extremity edema. RESPIRATORY: Denies cough. Denies shortness of breath, wheezing. GASTROINTESTINAL: Denies abdominal pain or distention. Denies nausea, vomiting, or diarrhea. Denies blood in vomitus, stools, or per rectum. Denies black, tarry stools. Denies constipation. GENITOURINARY: Denies difficulty urinating, painful urination, frequency, blood in urine, or vaginal discharge. MUSCULOSKELETAL: Denies back or neck pain or stiffness. Denies joint pain or swelling. SKIN: Denies rash, lesions or sores. HEMATOLOGIC : Denies easy bruising or bleeding. LYMPHATIC: Denies swollen glands. NEUROLOGICAL: Denies confusion or altered mental status. Denies loss of consciousness. Denies dizziness or lightheadedness. Denies headache. Denies weakness or paralysis. Denies problems difficulty with ambulation, slurred speech. Denies sensory loss, numbness, or tingling. Denies seizures. PSYCHIATRIC: Denies anxiety or stress. Denies depression, suicidal ideation, or homicidal ideation. Denies visual hallucinations. Physical Exam - Vital signs Vitals: Temp Pulse Resp BP Pulse Ox 98.3 F 95 16 145/95 H 97 04/05/19 17:51 04/05/19 17:51 04/05/19 17:51 04/05/19 17:51 04/05/19 17:51 - Notes Notes: PHYSICAL EXAMINATION: GENERAL: Well-appearing, well-nourished and in no acute distress. HEAD: Atraumatic, normocephalic. EYES: Pupils equal round and reactive to light, extraocular movements intact, conjunctiva are normal. ENT: Nares patent, oropharynx clear without exudates. Moist mucous membranes. NECK: Normal range of motion, supple without lymphadenopathy LUNGS: Breath sounds clear to auscultation bilaterally and equal. No wheezes rales or rhonchi. HEART: Regular rate and rhythm without murmurs ABDOMEN: Soft, nontender, nondistended abdomen. No guarding, no rebound. No masses appreciated. Female : deferred Musculoskeletal: Normal range of motion, no pitting or edema. No cyanosis. NEUROLOGICAL: Cranial nerves grossly intact. Normal speech, normal gait. Normal sensory, motor exams PSYCH: Flat affect. Denies suicidal, homicidal ideation. Admits to auditory hallucinations. SKIN: Warm, Dry, normal turgor, no rashes or lesions noted. Course - Re-evaluation Re-evalutation: 04/06/19 03:03 Laboratory 04/05/19 04/05/19 04/05/19 18:25 18:25 18:25 WBC 16.4 H RBC 4.86 Hgb 14.0 Hct 42.4 MCV 87 MCH 28.7 MCHC 33.0 RDW 14.8 H Plt Count 454 H Seg Neutrophils % 76.7 Lymphocytes % 17.0 Monocytes % 5.4 Eosinophils % 0.3 Basophils % 0.6 Absolute Neutrophils 12.6 H Absolute Lymphocytes 2.8 Absolute Monocytes 0.9 Absolute Eosinophils 0.1 Absolute Basophils 0.1 Sodium 138.8 Potassium 3.9 Chloride 105 Carbon Dioxide 21 L Anion Gap 13 BUN 9 Creatinine 0.58 Est GFR ( Amer) > 60 Est GFR (Non-Af Amer) > 60 Glucose 104 Calcium 9.8 Total Bilirubin 0.6 Direct Bilirubin 0.3 Neonat Total Bilirubin Not Reportable Neonat Direct Bilirubin Not Reportable Neonat Indirect Bili Not Reportable AST 15 ALT 24 Alkaline Phosphatase 86 Total Protein 7.7 Albumin 4.5 Serum HCG, Qual NEGATIVE Urine Color Urine Appearance Urine pH Ur Specific Cromwell Urine Protein Urine Glucose (UA) Urine Ketones Urine Blood Urine Nitrite Urine Bilirubin Urine Urobilinogen Ur Leukocyte Esterase Urine WBC (Auto) Urine RBC (Auto) Urine Bacteria (Auto) Squamous Epi Cells Auto Urine Mucus (Auto) Urine Ascorbic Acid Salicylates < 1.0 L Urine Opiates Screen Urine Methadone Screen Acetaminophen < 10 L Ur Barbiturates Screen Ur Phencyclidine Scrn Ur Amphetamines Screen U Benzodiazepines Scrn Urine Cocaine Screen U Marijuana (THC) Screen Serum Alcohol < 10 04/05/19 04/05/19 18:25 18:25 WBC RBC Hgb Hct MCV MCH MCHC RDW Plt Count Seg Neutrophils % Lymphocytes % Monocytes % Eosinophils % Basophils % Absolute Neutrophils Absolute Lymphocytes Absolute Monocytes Absolute Eosinophils Absolute Basophils Sodium Potassium Chloride Carbon Dioxide Anion Gap BUN Creatinine Est GFR ( Amer) Est GFR (Non-Af Amer) Glucose Calcium Total Bilirubin Direct Bilirubin Neonat Total Bilirubin Neonat Direct Bilirubin Neonat Indirect Bili AST ALT Alkaline Phosphatase Total Protein Albumin Serum HCG, Qual Urine Color YELLOW Urine Appearance SLIGHTLY-CLOUDY Urine pH 5.0 Ur Specific [place]well 1.020 Urine Protein 30 H Urine Glucose (UA) NEGATIVE Urine Ketones 20 H Urine Blood LARGE H Urine Nitrite POSITIVE H Urine Bilirubin NEGATIVE Urine Urobilinogen NEGATIVE Ur Leukocyte Esterase NEGATIVE Urine WBC (Auto) 4 Urine RBC (Auto) 8 Urine Bacteria (Auto) 3+ Squamous Epi Cells Auto 5 Urine Mucus (Auto) RARE Urine Ascorbic Acid NEGATIVE Salicylates Urine Opiates Screen NEGATIVE Urine Methadone Screen NEGATIVE Acetaminophen Ur Barbiturates Screen NEGATIVE Ur Phencyclidine Scrn NEGATIVE Ur Amphetamines Screen NEGATIVE U Benzodiazepines Scrn NEGATIVE Urine Cocaine Screen NEGATIVE U Marijuana (THC) Screen UNCONFIRMED POSITIVE Serum Alcohol Temp Pulse Resp BP Pulse Ox 98.5 F 93 16 130/74 H 100 04/06/19 02:30 04/06/19 02:30 04/06/19 02:30 04/06/19 02:30 04/06/19 02:30 04/06/19 03:07 Patient is a 43-year-old female with a history of chronic multiple psychiatric disorders (psychosis, Bipolar, Kyra, Schizophrenia and Dual Personality) who presents complaining of mood instability increasing over the past 2 to 3 weeks. She has not had any SI or HI. Patient states that she does continue to hear voices, but has had this chronically. She does not disclose what the voices are saying. Patient does live alone. She was here about a month ago for something similar and was prescribed medication which she did not fill. Vital signs reviewed and within normal limits. Patient does not appear toxic or dehydrated. She is in no acute distress. CBC does show a leukocytosis without anemia. CMP unremarkable. Urine drug screen positive for marijuana. IVC petition was not initiated. Patient has been cooperative throughout her ED course. Urine culture culture pending. Patient cleared for evaluation by behavioral health team. - Vital Signs Vital signs: Temp Pulse Resp BP Pulse Ox 98.5 F 93 16 130/74 H 100 04/06/19 02:30 04/06/19 02:30 04/06/19 02:30 04/06/19 02:30 04/06/19 02:30 - Laboratory Result Diagrams: 04/05/19 18:25 04/05/19 18:25 Laboratory results interpreted by me: 04/05/19 04/05/19 04/05/19 18:25 18:25 18:25 WBC 16.4 H RDW 14.8 H Plt Count 454 H Absolute Neutrophils 12.6 H Carbon Dioxide 21 L Urine Protein 30 H Urine Ketones 20 H Urine Blood LARGE H Urine Nitrite POSITIVE H Salicylates < 1.0 L Acetaminophen < 10 L Discharge - Discharge Clinical Impression: Auditory hallucination Disposition: OTHER
[2019-04-05 18:58] LABS: ALANINE AMINOTRANSFERASE 24 U/L (9-52); ALBUMIN 4.5 g/dL (3.5-5.0); ALKALINE PHOSPHATASE 86 U/L (38-126); ANION GAP 13 (5-19); APPEARANCE,URINE SLIGHTLY-CLOUDY; ASPARTATE AMINO TRANSFERASE 15 U/L (14-36); BILIRUBIN,DIRECT 0.3 mg/dL (0.0-0.4); BILIRUBIN,TOTAL 0.6 mg/dL (0.2-1.3); BILIRUBIN,URINE NEGATIVE (NEGATIVE); BLOOD UREA NITROGEN 9 mg/dL (7-20); CALCIUM 9.8 mg/dL (8.4-10.2); CARBON DIOXIDE 21 mmol/L (22-30); CHLORIDE 105 mmol/L (98-107); COLOR,URINE YELLOW; GLUCOSE 104 mg/dL (75-110); GLUCOSE, URINE NEGATIVE (NEGATIVE); KETONES,URINE 20 mg/dL (NEGATIVE); LEUKOCYTE ESTERASE,URINE NEGATIVE (NEGATIVE); NITRITE,URINE POSITIVE (NEGATIVE); POTASSIUM 3.9 mmol/L (3.6-5.0); PROTEIN,URINE 30 mg/dL (NEGATIVE); SODIUM 138.8 mmol/L (137-145); TOTAL PROTEIN 7.7 g/dL (6.3-8.2); UROBILINOGEN,URINE NEGATIVE mg/dL (<2.0)
[2019-04-05 19:09] LABS: URINE AMPHETAMINES SCREEN NEGATIVE; URINE BARBITURATES SCREEN NEGATIVE; URINE BENZODIAZEPINES SCREEN NEGATIVE; URINE COCAINE SCREEN NEGATIVE; URINE MARIJUANA (THC) SCREEN UNCONFIRMED POSITIVE; URINE METHADONE SCREEN NEGATIVE; URINE PHENCYCLIDINE SCREEN NEGATIVE
[2019-04-05 19:11] LABS: ACETAMINOPHEN < 10 ug/mL (10-30); ALCOHOL < 10 mg/dL (NONE DETECTED); SALICYLATE < 1.0 mg/dL (2.0-20.0)
[2019-04-05] MEDS ORDERED: DIPHENHYDRAMINE HCL 50 MG CAPSULE PO ONE (20:56)
[2019-04-05] MEDS ORDERED: DIPHENHYDRAMINE HCL 50 MG/ML VIAL ONE (21:06)
[2019-04-06 12:25] VITALS: BP 128/72
--- NOTE | 2019-04-06 12:27 | ER Document Report ---
Doctor's Note Notes: 04/06/19 12:26 Rounds vital signs are all essentially normal. Lab studies showed a white count of 6400, patient has no signs of infection. Patient has no UTI symptoms and her urine is likely just contaminated. Patient appears to be medically stable for transfer or discharge. Michael White MD
--- NOTE | 2019-04-09 06:07 | PSYCHOLOGICAL NOTE ---
Psych Note - Psych Note Date seen by psych provider: 04/06/19 Psych Note: Diagnosis: 296.80 (F31.9) Unspecified Bipolar and Related Disorder Cannabis Use Disorder, Moderate Medication recommendations made by the psychiatric medical provider, Dr. Evan MD., includes: Add Zyprexa 2.5MG twice a day for mood stabilization/impulse control Impression/Plan: Patient is cleared from acute psychiatric services. She presented for sadness and hearing voices. She denied SI/HI, denied previous attempts, and no observed psychosis that interfered with ability to interact with others/express self/express wants and needs. She admitted she never filled her prescription from the 03/07/19 ED visit for similar etiology. Pyshcoeducated patient on the importance of medication for Bipolar Disorder due to chemical imbalance and how the use of cannabis can increase psychosis since she is predisposed to Bipolar Disorder (family history, previous diangosis). She recalled the scheduled follow up therapy appointment at [facility] on 04/20/19 at 1300 that was set up from previous ED visit. Provided outpatient MH resource sheet which documented appointment date and time, that she could walk in [id number] for medications and should. Also highlighted the [facility] MCM number for crisis/talk therapy/linkage to other supports/services. Corky Valle worked until 1500 and patient said she could obtain a ride from some friends or wait for corky. Consulted with Dr. Graves regarding the management and care of patient. ED Physician in agreement with recommendations.
== END 2019-04-06 12:25 | disposition home or self-care (01) ==
LOC: ER 17:43
DX: R44.0 Auditory hallucinations (principal); F31.9 Bipolar disorder, unspecified; F12.99 Cannabis use, unspecified with unspecified cannabis-induced disorder; Z88.6 Allergy status to analgesic agent; F17.210 Nicotine dependence, cigarettes, uncomplicated
CPT/HCPCS: 99284; 36415; 87086; 80307 ×4; 84703; 85025; 87088; 80053; 81001; 87186; A9270